=== PATIENT | male | born 1965 | race Caucasian/White ===

== ENCOUNTER 2019-12-11 09:00 | Day surgery (SDC) | payer OTHER, SELFPAY ==
[2019-12-10 13:11] VITALS: BP 137/83; PULSE 80
[2019-12-11] VITALS (8 sets, daily range): BP systolic 99–143; BP diastolic 56–80; PULSE 59–78; RESP 14–24; TEMP 36.4–36.8; O2SAT 93–98
--- NOTE | 2019-12-11 06:56 | W.PM.OP ---
Date of service: 12/11/19 Time of Service: 11:49 Operative Note Operative Note DATE OF PROCEDURE: 12/11/19 PRE-OP DIAGNOSIS: Right recurrent inguinal hernia POST-OP DIAGNOSIS: other (Large lipoma, intact mesh without recurrence of his hernia) PROCEDURE: Right inguinal area exploration and removal of large lipoma SURGEON: Rosalinda Gonzalez REFRIGERATION ENGINE OPERATOR: Marga Lawson ANESTHESIA: GETA (ASA 2/ Steven Osborne CRNA), regional (TAP block) and local (1% Lidocaine) ESTIMATED BLOOD LOSS: 5 COMPLICATIONS: None Patient was transported to: PACU Patient's condition: stable Implants: none Indications: Mr. Doherty is a pleasant 53-year-old gentleman who is here today to discuss possible right inguinal hernia repair. He states that about 3 to 4 weeks ago he started to notice some right groin pain. The pain resolves if he is laying down in bed. He was seen by his primary care physician who diagnosed him with a right inguinal hernia. He has had prior repair of the left inguinal hernia when he was 14 years old and a right inguinal hernia repair in 1996. He is unsure of whether there is a mesh on the right side. He also complains of constipation which started about 6 months ago. He takes Colace 100 mg 1 to 2 tablets as needed. He denies any chest pain or cardiac issues. He has no shortness of breath. He does have occasional heartburn and takes omeprazole on a daily basis. He also has a history of gout for which she is on allopurinol. He tells me that right now he is having a flare in his right foot and will be calling his primary care physician. Usually he gets some prednisone for short period when his gout flares. He does not recall having any issues with anesthesia in the past. Findings: Large 10 cm lipoma overlying the external oblique fascia over the inguinal area. The external oblique fascia was opened and the old mesh was identified. NO recurrent hernia could be seen after exploration. Procedure Description: After informed concent was obtained the patient was taken to the operating room and placed in a supine position. Monitors and SCDs were applied and a timeout was done. The patient's name, date of , procedure type, procedure site, allergies to medications, preoperative antibiotic, and DVT prophylaxis were all reviewed. Fire risk was assessed. Next anesthesia did a tap block on the right side under ultrasound guidance. Please see their separate dictation. Once anesthesia was done the abdomen was prepped and draped in a sterile surgical fashion. 1% lidocaine was injected into the dermis in the right lower quadrant. An incision was made with a 10 blade in the right lower quadrant. Dissection was done with cautery through the subcutaneous tissues and Larry's fascia down to the external oblique fascia. A large 10 cm lipoma was identified overlying the external oblique fascia. The lipoma was removed. The external ring was identified and the external oblique fascia was opened sharply through the external ring. The old mesh was identified. The inguinal area was explored. No direct or indirect hernia recurrence could be identified. The external oblique fascia was re-approximated using 2-0 Vicryl running suture. The Larry's fascia was re-approximated using interrupted 3-0 Vicryl. The dermis was re-approximated with a running 4-0 Vicryl. The skin was cleaned and dried and skin affix was applied. The patient was woken up and taken back to recovery in stable condition. There were no immediate complications. Sponge, instrument and needle counts were correct at the end of the case x2.
--- NOTE | 2019-12-11 06:58 | PDOC.DSDIS_ITS ---
Discharge Plan Disposition Patient Disposition: HOME Condition: Good Discharge Details Reason For Visit: (R) INGUINAL HERNIA Attending Provider: Rosalinda Gonzalez Primary Care Provider: Jose Summers [facility] Meds and New Rx's Prescriptions: Continued allopurinol 100 mg tablet 100 mg PO DAILY RF: 0 labetalol 200 mg tablet 400 mg PO DAILY RF: 0 Complete Multivitamin Tablet 1 tab PO DAILY RF: 0 omeprazole 20 mg capsule,delayed release(DR/EC) 20 mg PO DAILY RF: 0 ramipril 10 mg capsule 10 mg PO DAILY RF: 0 ibuprofen [Advil] 200 mg tablet 600 mg PO Q6H PRNRF: 0 tramadol 50 mg tablet 50 mg PO DAILY PRNRF: 0 docusate sodium [Colace] 100 mg capsule 100 mg PO DAILY PRNRF: 0 Discharge Instructions Additional Instructions: Activity at Home after surgery: 1. Make sure you walk outside at least 4 times per day 2. You should be able to climb a flight of stairs 3. No driving while in pain or taking pain medications 4. No strenuous activity or heavy lifting for 2 weeks Diet, Nutrition, & wound healin. Avoid alcohol until after you are recovered from your surgery 2. Make sure to eat plenty of lean protein (meat, fish, eggs, cottage cheese, beans) 3. Eat a variety of fruits and vegetables. Eat plenty of high fiber foods to avoid constipation. 4. Drink plenty of liquids to stay hydrated and avoid constipation Pain Medications: 1. Alternate Tylenol 650 mg and Ibuprofen 600 mg every 3 hours 2. If a narcotic has been prescribed take as directed only for breakthrough pain For Constipation: 1. Take Milk of Magnesia or MiraLax as needed for constipation Other: 1. You may shower daily. Do not scrub the incisions 2. Do not soak the incisions for 1 week 3. You may alternate ice and heat as needed for pain and swelling Wound Care: 1. Keep the incisions clean and dry Please call our office if you develop: 1. Fevers >101.5 2. Nausea or Vomiting 3. Worsening pain 4. Redness and thick discharge from the wounds If after hours please call the Hospital at and ask to speak to the on-call surgeon Referrals: Rosalinda Gonzalez MD [ [facility] STAFF PHYSICIAN] - 12/27/19 10:00 am Activity:: Activity as Tolerated Diet:: As Tolerated Discharge Orders Discharge Orders: Discharge Order (Routine); Ordered 12/11/19 Ordered By: Rosalinda Gonzalez
[2019-12-11] MEDS: Lactated Ringers 1,000 ML 80 ML IV (09:51)
[2019-12-11] MEDS: ceFAZolin 2 GM/50 ML BAG IVPB (11:24)
[2019-12-11] MEDS: Bupivacaine LIPOSOME/PF 133 MG/10 ML VIAL IJ (11:36)
[2019-12-11] MEDS: Bupivacaine 0.25% Pres-Free 30 ML VIAL (11:36)
[2019-12-11] MEDS: Lidocaine 1% Multi-Dose 50 ML VIAL (11:49)
== END 2019-12-11 14:43 | disposition home or self-care (01) ==
LOC: SUR 09:00
PROVIDERS: PCP Neuromusculoskeletal Medicine & OMM; Visit Provider Surgery
PROC: (CPT 22901; principal; 2019-12-11 11:00)
DX: D17.79 Benign lipomatous neoplasm of other sites (principal); G89.18 Other acute postprocedural pain; M10.9 Gout, unspecified
CPT/HCPCS: 22901; 76942; J0690; J1100; J1885; J2001; J2405